=== PATIENT | male | born 1960 | race Caucasian/White ===

== ENCOUNTER 2016-11-14 20:35 | Inpatient (IN) | payer OTHER ==
[~2016-11-14] VITALS: Ht 180.3 cm; Wt 97.4 kg
[2016-11-14] MEDS ORDERED: SODIUM CHLORIDE 0.9% 1,000 ML IV ONE (20:53)
[2016-11-14] MEDS ORDERED: ENOXAPARIN SOD 30 MG/0.3 ML SYRINGE ONE (21:13)
[2016-11-14] MEDS ORDERED: ASPirin 81 mg TAB ONE (21:13)
[2016-11-14] MEDS ORDERED: ASPirin 81 mg TAB PO ONE (21:15)
[2016-11-14] MEDS ORDERED: NITROGLYCERIN 50MG/250ML 250 ML IV SCH (21:15)
[2016-11-14] MEDS ORDERED: ENOXAPARIN SOD 30 MG/0.3 ML SYRINGE IV ONE (21:15)
[2016-11-14 21:27] LABS: Basophils # (auto) 0 uL; Basophils % (auto) 0.6 % (0.0-2.0); Eosinophils # (auto) 0.3 uL; Eosinophils % (auto) 3.9 % (0.0-7.0); Hematocrit 44.4 % (41.0-53.0); Hemoglobin 15.1 g/dL (13.5-17.5); Lymphocytes # (auto) 3.3 uL; Lymphocytes % (auto) 43.5 % (10.0-50.0); Mean Corpuscular Hemoglobin 31.9 pg (28.0-32.0); Mean Corpuscular Hgb Conc. 34.1 g/dL (32.0-36.0); Mean Corpuscular Volume 93.7 fL (80.0-100.0); Mean Platelet Volume 7.8 fL (6.9-10.8); Monocytes # (auto) 0.5 uL; Neutrophils # (auto) 3.4 uL; Nucleated Red Blood Cells % 0.1 %; Platelet Count (auto) 237 10^3/uL (140-450); Red Cell Distribution Width 13.2 % (11.8-14.3); White Blood Cell 7.5 10^3/uL (4.4-10.8)
[2016-11-14] MEDS ORDERED: IOHEXOL 350 MG/ML 100ML IJ ONE ×2 (21:30→22:38)
[2016-11-14] MEDS ORDERED: LIDOCAINE 2%HCL (LOCAL ANESTH.) INJ 20ML MDV ONE (21:30)
[2016-11-14 21:35] LABS: INR 0.97 (0.9-1.15)
[2016-11-14 21:46] LABS: Albumin 3.8 g/dL (3.4-5.0); BUN/Creatinine Ratio 10.6; Calcium 8.8 mg/dL (8.5-10.1); Potassium 3.4 mmol/L (3.5-5.1)
[2016-11-14] MEDS ORDERED: MIDAZOLAM HCL 1MG/1ML-2 ML VIAL ONE (21:49)
[2016-11-14] MEDS ORDERED: ANGIOMAX 250 MG VIAL IV ONE ×2 (21:50→22:52)
[2016-11-14] MEDS ORDERED: SODIUM CHL 0.9% 50 ML ONE ×2 (21:50→22:52)
[2016-11-14] MEDS ORDERED: fentaNYL CITRATE 100 MCG/2 ML VL ONE (21:50)
[2016-11-14] MEDS ORDERED: ONDANSETRON HCL 4 MG/2 ML VIAL ONE (21:58)
[2016-11-14 22:02] LABS: Bilirubin, Total 0.3 mg/dL (0.2-1.0)
[2016-11-14] MEDS ORDERED: CLOPIDOGREL 300 MG TAB ONE (22:23)
[2016-11-14] MEDS ORDERED: NITROGLYCERIN 0.4MG/DOSE SPRAY 4.9GM ONE (22:25)
[2016-11-14] MEDS ORDERED: CLOPIDOGREL 300 MG TAB PO ONE (22:30)
[2016-11-14 22:37] LABS: B-Type Natriuretic Peptide 8.2 pg/mL (0-100); Temperature: 21.9 C (20.0-25.0)
[2016-11-14] MEDS ORDERED: NITROGLYCERIN 5MG/ML 10ML VIAL IV ONE (22:37)
[2016-11-14] MEDS ORDERED: VERAPAMIL 2.5MG/ML INJ 2ML VIAL IV ONE (22:38)
[2016-11-14] MEDS ORDERED: PRASUGREL HCL 10 MG TAB ONE (23:14)
[2016-11-14] MEDS ORDERED: NITROGLYCERIN 0.4 MG SL TAB SL PRN (23:45)
[2016-11-14] MEDS ORDERED: HYDROcodone-ACET 5/325MG TAB PO PRN (23:45)
[2016-11-14] MEDS ORDERED: ONDANSETRON HCL 4 MG/2 ML VIAL IV PRN (23:45)
[2016-11-14] MEDS ORDERED: LORazepam 0.5 MG TAB PO PRN (23:45)
[2016-11-14] MEDS ORDERED: ZOLPIDEM TARTRATE 5 MG TAB PO PRN (23:45)
[2016-11-14] MEDS ORDERED: ACETAMINOPHEN 500 MG TAB PO PRN (23:45)
[2016-11-14 23:55] VITALS: BP 140/71
[2016-11-15] VITALS (40 sets, daily range): BP systolic 124–163; BP diastolic 68–100
[2016-11-15] MEDS ORDERED: SODIUM CHLORIDE 0.9% 1,000 ML IV SCH
[2016-11-15] MEDS ORDERED: METOPROLOL TARTRATE 25 MG TAB PO ONE
[2016-11-15] MEDS ORDERED: POTASSIUM CHL 20 Meq TABLET PO ONE
[2016-11-15 00:17] LABS: Cholesterol 241 mg/dL (< 200); HDL Cholesterol 43 mg/dL (40-59); Triglycerides 461 mg/dL (< 150)
[2016-11-15] MEDS: MORPHINE SULF INJ 2 MG/ML SYRINGE 1ML IV PRN ×2 (02:59→04:03)
[2016-11-15] MEDS ORDERED: SODIUM CHLOR 0.9% PF (SALINE LOCK) 10ML VIAL IV SCH (06:00)
[2016-11-15 08:33] LABS: BUN/Creatinine Ratio 12.2; Calcium 8.2 mg/dL (8.5-10.1); Magnesium 2.2 mg/dL (1.6-2.6); Potassium 3.7 mmol/L (3.5-5.1)
[2016-11-15] MEDS ORDERED: METOPROLOL TARTRATE 25 MG TAB PO SCH (10:00)
[2016-11-15] MEDS ORDERED: PRASUGREL HCL 10 MG TAB PO SCH (10:00)
[2016-11-15] MEDS ORDERED: PRAS10TA6 PO (12:18)
[2016-11-15] MEDS ORDERED: ATORVASTATIN 20 MG TAB PO SCH (22:00)
== END 2016-11-15 13:21 | disposition home or self-care (01) | DRG 247 ==
LOC: ER 20:39 → OR 1 21:23 → ICU WEST 21:24
PROVIDERS: ADMIT Internal Medicine Cardiovascular Disease; ATTEND Internal Medicine Cardiovascular Disease
PROC: 027236Z Dilation of Coronary Artery, Three Arteries with Three Drug-eluting Intraluminal Devices, Percutaneous Approach (ICD-10-PCS; principal; 2016-11-14)
PROC: 02C03ZZ Extirpation of Matter from Coronary Artery, One Artery, Percutaneous Approach (ICD-10-PCS; 2016-11-14)
PROC: 4A023N7 Measurement of Cardiac Sampling and Pressure, Left Heart, Percutaneous Approach (ICD-10-PCS; 2016-11-14)
PROC: B2111ZZ Fluoroscopy of Multiple Coronary Arteries using Low Osmolar Contrast (ICD-10-PCS; 2016-11-14)
DX: I21.4 Non-ST elevation (NSTEMI) myocardial infarction (principal); I10 Essential (primary) hypertension; E78.5 Hyperlipidemia, unspecified; I25.2 Old myocardial infarction; Z82.49 Family history of ischemic heart disease and other diseases of the circulatory system
CPT/HCPCS: 36415; 71010; 80048; 80053; 80061; 83036; 83735; 83880; 84443; 84484; 85025; 85379; 85610; 85730; 86850; 86900; 86901; 87081; 92924; 92928; 93005; 93306; 93458; 96361; 96374; 96375; 99152; 99153; C1874; J2250; J2405; J3490

== ENCOUNTER 2016-11-18 09:35 | Emergency (ER) | payer OTHER ==
[~2016-11-18] VITALS: Ht 180.3 cm; Wt 93.0 kg
[~2016-11-18 09:35] MED LIST: PRAS10TA6 PO
[2016-11-18 10:58] LABS: Basophils # (auto) 0 uL; Basophils % (auto) 0.7 % (0.0-2.0); Eosinophils # (auto) 0.1 uL; Eosinophils % (auto) 2.4 % (0.0-7.0); Hematocrit 44.3 % (41.0-53.0); Hemoglobin 15.1 g/dL (13.5-17.5); Mean Corpuscular Hemoglobin 31.8 pg (28.0-32.0); Mean Corpuscular Volume 93.6 fL (80.0-100.0); Mean Platelet Volume 7.6 fL (6.9-10.8); Monocytes # (auto) 0.5 uL; Monocytes % (auto) 8.2 % (0.0-12.0); Neutrophils # (auto) 3.3 uL; Neutrophils % (auto) 55.7 % (37.0-80.0); Platelet Count (auto) 212 10^3/uL (140-450); Red Cell Distribution Width 12.9 % (11.8-14.3)
[2016-11-18 11:32] LABS: BUN/Creatinine Ratio 14.4; Bilirubin, Total 0.6 mg/dL (0.2-1.0); Calcium 9.1 mg/dL (8.5-10.1); Magnesium 2.5 mg/dL (1.6-2.6); Potassium 4.2 mmol/L (3.5-5.1); Total Protein 7.7 g/dL (6.4-8.2)
[2016-11-18] MEDS ORDERED: LORazepam 2MG/ML-1ML VIAL ONE (12:39)
[2016-11-18] MEDS ORDERED: LORazepam 2MG/ML-1ML VIAL IV ONE (12:45)
[2016-11-18] MEDS ORDERED: ASPirin 81 mg TAB PO ONE (12:45)
[2016-11-18 16:30] VITALS: BP 127/79
== END 2016-11-18 16:38 | disposition short-term general hospital (02) ==
LOC: ER 09:35
DX: I24.9 Acute ischemic heart disease, unspecified (principal); I25.2 Old myocardial infarction; Z98.61 Coronary angioplasty status; Z95.1 Presence of aortocoronary bypass graft
CPT/HCPCS: 36415; 71020; 80053; 83735; 84484; 85025; 93005; 94761; 96374; 99285; J2060